=== PATIENT | male | born 1945 | race Caucasian/White ===

== ENCOUNTER 2021-05-01 21:04 | Emergency (ER) | payer MEDICARE, OTHER ==
[~2021-05-01] VITALS: Ht 190.5 cm; Wt 113.4 kg
[2021-05-01] MEDS ORDERED: DEXAMETHASONE SOD PHOS INJ 4 MG/ML SDV INJ ONE (21:30)
[2021-05-01] MEDS ORDERED: CEFDINIR300 MG PO (21:31)
[2021-05-01] MEDS ORDERED: PREDNISONE20 MG PO (21:31)
[2021-05-01] MEDS ORDERED: DEXAMETHASONE SOD PHOS INJ 4 MG/ML SDV ONE (21:47)
== END 2021-05-01 22:00 | disposition home or self-care (01) ==
LOC: FSED 21:14
DX: J01.90 Acute sinusitis, unspecified (principal)
CPT/HCPCS: 99282; J1100

== ENCOUNTER 2024-11-06 07:56 | Emergency (ER) | payer MEDICARE, OTHER ==
[~2024-11-06] VITALS: Ht 190.5 cm; Wt 112.2 kg
[~2024-11-06 07:56] MED LIST: CEFDINIR300 MG PO; PREDNISONE20 MG PO
[2024-11-06] MEDS ORDERED: MICARDIS80 MG PO (08:26)
[2024-11-06] MEDS ORDERED: ZETIA10 MG PO (08:26)
[2024-11-06] MEDS ORDERED: MELOXICAM7.5 MG PO (08:26)
[2024-11-06] MEDS ORDERED: NORVASC10 MG PO (08:26)
[2024-11-06] MEDS ORDERED: HYDROCHLOROTHIA25 MG PO (08:26)
[2024-11-06] MEDS: KETOROLAC TROMETHAMINE 30 MG/ML VIAL IM STA (08:41)
[2024-11-06] MEDS ORDERED: KETOROLAC TROME10 MG PO (10:22)
[2024-11-06] MEDS ORDERED: FLOMAX0.4 MG PO (10:22)
[2024-11-06 10:34] VITALS: PULSE 56; RESP 16; TEMP 97.9; O2SAT 97
== END 2024-11-06 10:44 | disposition home or self-care (01) ==
LOC: FSED 08:05
DX: M54.50 Low back pain, unspecified (principal); N20.0 Calculus of kidney; K43.9 Ventral hernia without obstruction or gangrene; I71.43 Infrarenal abdominal aortic aneurysm, without rupture; I10 Essential (primary) hypertension; E78.5 Hyperlipidemia, unspecified; M19.09 Primary osteoarthritis, other specified site; Z86.718 Personal history of other venous thrombosis and embolism; Z95.5 Presence of coronary angioplasty implant and graft
CPT/HCPCS: 74150; 81003; 96372; 99283; J1885